=== PATIENT | male | born 1980 | race Caucasian/White ===

== ENCOUNTER 2024-08-14 17:02 | Emergency (ER) | payer SELFPAY ==
[2024-08-14 17:27] VITALS: BP 130/66; PULSE 69; RESP 19; TEMP 36.7; O2SAT 99
== END 2024-08-14 18:01 | disposition left against medical advice (07) ==
PROVIDERS: Emergency Provider Emergency Medicine
DX: S90.851A Superficial foreign body, right foot, initial encounter (principal)
CPT/HCPCS: 99281